=== PATIENT | female | born 1940 ===

== ENCOUNTER 2022-11-30 10:27 | Emergency (ER) | payer MEDICARE, SELFPAY ==
[2022-11-30 10:27] VITALS: BP 129/68; PULSE 86; RESP 14; TEMP 37.1; O2SAT 100
--- NOTE | 2022-11-30 13:32 | ED.GENADULT ---
HPI - General Adult General Chief complaint: Extremity Injury, Lower Stated complaint: LLE Wound Time Seen by Provider: 11/30/22 13:07 History of Present Illness HPI narrative: 82-year-old female presented to the emergency department for evaluation for a wound check. Patient just had vascular surgery on Sunday and during her dressing change they were unable to change the dressing at the [facility]. Patient's gauze was adhered to the wound. Related Data Allergies Allergy/AdvReac Type Severity Reaction Status Date / Time enoxaparin [From Lovenox] Allergy Unknown Verified 08/11/22 15:47 heparin Allergy Unknown Verified 08/11/22 15:47 penicillin G Allergy Other Verified 07/29/22 00:26 Review of Systems Review of Systems: All systems reviewed & are unremarkable except as noted in HPI and below PMFSH Past Medical History Medical History (Updated 11/30/22 @ 13:52 by Jonathon Degroot MD) Essential hypertension Fracture of wrist repair, Left 07/20/2022 H/O reduction of closed dislocation 08/07/2022 H/O reduction of open dislocation Hip 07/18/2022 Hx of reduction of closed fracture Left Leg, needs fracture table and C-arm Osteoarthritis Retinal detachment repair Surgical History Surgical History (Updated 11/08/22 @ 23:05 by Carmen Romo MD) History of arthroplasty Total hip Left History of incision and drainage 07/18/2022 History of open reduction and internal fixation (ORIF) procedure Left wrist/distal radius; possible skin graft S/P ORIF (open reduction internal fixation) fracture Left Acetabulum Family History Family History Mother Osteoarthritis Social History Social History Smoking status: Never smoker Second hand tobacco smoke exposure: No Alcohol intake: never Substance use: never Substance use type: does not use Spiritual care concerns: No Exam Narrative: APPEARANCE: Well appearing, no pain, no distress, well-nourished. HEAD: normocephalic, atraumatic. EYES: PERRLA/EOMI, conjunctivae clear. RESPIRATORY: Airway patent, respirations nonlabored. Clear to auscultation bilaterally, no rales, rhonchi, wheezing. CARDIOVASCULAR: Regular rate and rhythm without murmurs rubs or gallops. ABDOMINAL: Soft, nontender, nondistended, normal bowel sounds MUSCULOSKELETAL: Moves all extremities. Strength/ROM intact, No edema, No calf tenderness. NEURO: Alert. Cranial nerves II through XII intact. Good gait. Good coordination SKIN: Chronic wound to posterior left leg not cellulitic appearing appearing Course Course Emergency Course: 82-year-old female presented the ED for evaluation of a wound. Patient gauze was soaked and water and was easily removed. A nonadhesive dressing with Xeroform was used to prevent further adherence. Patient and family were updated on the treatment plan. Vital Signs Vital signs: Vital Signs Temperature 98.7 F 11/30/22 10:27 Pulse Rate 86 11/30/22 10:27 Respiratory Rate 14 11/30/22 10:27 Blood Pressure 129/68 11/30/22 10:27 Pulse Oximetry 100 11/30/22 10:27 Oxygen Delivery Room Air 11/30/22 10:27 Temperature 98.7 F 11/30/22 10:27 Pulse Rate 90 11/30/22 14:05 Respiratory Rate 18 11/30/22 14:05 Blood Pressure 132/60 11/30/22 14:05 Pulse Oximetry 97 11/30/22 14:05 Oxygen Delivery Room Air 11/30/22 10:27 Medical Decision Making Vital Signs Vital Signs: Vital Signs Temperature 98.7 F 11/30/22 10:27 Pulse Rate 86 11/30/22 10:27 Respiratory Rate 14 11/30/22 10:27 Blood Pressure 129/68 11/30/22 10:27 Pulse Oximetry 100 11/30/22 10:27 Oxygen Delivery Room Air 11/30/22 10:27 Temperature 98.7 F 11/30/22 10:27 Pulse Rate 90 11/30/22 14:05 Respiratory Rate 18 11/30/22 14:05 Blood Pressure 132/60 11/30/22 14:05 Pulse Oximetry 97 11/30/22 14:05 Oxygen Delivery R
[2022-11-30 14:05] VITALS: BP 132/60; PULSE 90; RESP 18; O2SAT 97
== END 2022-11-30 14:06 | disposition home or self-care (01) ==
PROVIDERS: Emergency Provider Emergency Medicine; PCP Internal Medicine Rheumatology
DX: Z48.01 Encounter for change or removal of surgical wound dressing (principal); I10 Essential (primary) hypertension; M19.90 Unspecified osteoarthritis, unspecified site; Z96.642 Presence of left artificial hip joint
CPT/HCPCS: 99282